=== PATIENT | male | born 1990 | race Two or more races ===

== ENCOUNTER 2020-11-13 21:42 | Emergency (ER) | payer MEDICAID, OTHER ==
[~2020-11-13] VITALS: Ht 170.2 cm; Wt 81.6 kg
[2020-11-13] MEDS ORDERED: LIDOCAINE 5% TOPICAL PATCH TOP ONE (23:45)
[2020-11-13] MEDS ORDERED: IBUPROFEN 600 MG TAB PO ONE (23:45)
[2020-11-14 00:07] LABS: Urine Amorphous Crystal FEW /hpf (None Seen); Urine Bacteria FEW /hpf (None Seen); Urine Blood 3+ /uL (Negative); Urine Mucus FEW (None Seen); Urine Specific Gravity 1.033 (1.001-1.035); Urine WBC 4 /hpf (0 - 3)
[2020-11-14 00:40] LABS: Basophils # (auto) 0.1 10 ^3/uL (0-0.2); Eosinophils # (auto) 0.1 10 ^3/uL (0-0.8); Eosinophils % (auto) 0.7 % (0.0-7.0); Hematocrit 42.1 % (41.0-53.0); Hemoglobin 14.7 g/dL (13.5-17.5); Lymphocytes # (auto) 0.4 10 ^3/uL (0.4-5.4); Lymphocytes % (auto) 4.9 % (10.0-50.0); Mean Corpuscular Hgb Conc. 34.9 g/dL (32.0-36.0); Monocytes # (auto) 0.2 10 ^3/uL (0-1.3); Monocytes % (auto) 2.6 % (0.0-12.0); Neutrophils # (auto) 8.3 10 ^3/uL (1.6-8.6); Neutrophils % (auto) 90.8 % (37.0-80.0); White Blood Cell 9.2 10^3/uL (4.4-10.8)
[2020-11-14 00:54] LABS: Calcium 8.8 mg/dL (8.5-10.1); Potassium 3.8 mmol/L (3.5-5.1)
[2020-11-14 01:00] LABS: BUN/Creatinine Ratio 13.7
[2020-11-14 03:09] VITALS: BP 130/84
== END 2020-11-14 03:45 | disposition home or self-care (01) ==
LOC: ER 21:44
DX: M54.5 Low back pain (principal); N39.0 Urinary tract infection, site not specified
CPT/HCPCS: 36415; 72100; 74176; 80048; 81001; 85025

== ENCOUNTER 2021-05-11 19:37 | Emergency (ER) | payer MEDICAID ==
[~2021-05-11] VITALS: Ht 167.6 cm; Wt 98.9 kg
[2021-05-12 05:03] VITALS: BP 139/100
== END 2021-05-12 05:08 | disposition home or self-care (01) ==
LOC: ER 19:48
DX: Q66.6 Other congenital valgus deformities of feet (principal)
CPT/HCPCS: 73610

== ENCOUNTER 2021-05-21 07:29 | Emergency (ER) | payer MEDICAID ==
[~2021-05-21] VITALS: Ht 167.6 cm; Wt 86.2 kg
[2021-05-21 07:32] VITALS: BP 123/79
== END 2021-05-21 08:38 | disposition left against medical advice (07) ==
LOC: ER 07:29
DX: M79.604 Pain in right leg (principal); Z53.21 Procedure and treatment not carried out due to patient leaving prior to being seen by health care provider